=== PATIENT | male | born 1985 | race Two or more races ===

== ENCOUNTER 2021-08-19 19:49 | Emergency (ER) | payer OTHER ==
[~2021-08-19] VITALS: Ht 177.8 cm; Wt 86.2 kg
[2021-08-19] MEDS ORDERED: AUGMENTIN125 MG/5 M PO (20:13)
[2021-08-19] MEDS ORDERED: MOTRIN IB200 M1 PO (20:13)
[2021-08-19] MEDS ORDERED: ULTRAM50 MG PO (20:51)
[2021-08-19] MEDS ORDERED: CLEOCIN HCL300 MG PO (20:51)
== END 2021-08-19 21:43 | disposition home or self-care (01) ==
LOC: ER 19:49
DX: K08.89 Other specified disorders of teeth and supporting structures (principal)